=== PATIENT | male | born 1965 | race Two or more races ===

== ENCOUNTER 2018-08-06 10:08 | Emergency (ER) | payer SELFPAY ==
[~2018-08-06] VITALS: Ht 170.2 cm; Wt 72.6 kg
[2018-08-06 10:32] VITALS: BP 131/70
[2018-08-06 11:20] LABS: Basophils # (auto) 0 uL; Basophils % (auto) 0.4 % (0.0-2.0); Eosinophils # (auto) 0.1 uL; Eosinophils % (auto) 0.9 % (0.0-7.0); Hematocrit 48.9 % (41.0-53.0); Hemoglobin 16.4 g/dL (13.5-17.5); Lymphocytes # (auto) 1.1 uL; Lymphocytes % (auto) 19.8 % (10.0-50.0); Mean Corpuscular Hemoglobin 30.5 pg (28.0-32.0); Mean Corpuscular Hgb Conc. 33.6 g/dL (32.0-36.0); Mean Corpuscular Volume 90.9 fL (80.0-100.0); Monocytes # (auto) 0.5 uL; Neutrophils # (auto) 4.1 uL; Neutrophils % (auto) 70.9 % (37.0-80.0); Platelet Count (auto) 350 10^3/uL (140-450); Red Blood Cells 5.38 10^6/uL (4.5-5.90); Red Cell Distribution Width 13.1 % (11.8-14.3); White Blood Cell 5.8 10^3/uL (4.4-10.8)
[2018-08-06 11:37] LABS: Chloride 108 mmol/L (98-107); Potassium 4.3 mmol/L (3.5-5.1); Sodium 138 mmol/L (136-145)
[2018-08-06 11:45] LABS: Alanine Aminotransferase 29 U/L (16-61); Albumin 4.3 g/dL (3.4-5.0); Alkaline Phosphatase 66 U/L (45-117); Anion Gap 4 (5-15); Aspartate Aminotransferase 28 U/L (15-37); Bilirubin, Total 0.5 mg/dL (0.2-1.0); Blood Urea Nitrogen 11 mg/dL (7-18); Carbon Dioxide 26 mmol/L (21-32); GFR African American 111 mL/min; GFR Non-African American 92 mL/min; Glucose 99 mg/dL (74-106)
[2018-08-06] MEDS ORDERED: ASPirin 81 mg TAB PO ONE (12:15)
== END 2018-08-06 17:46 | disposition home or self-care (01) ==
LOC: ER 10:08
DX: R07.89 Other chest pain (principal); F41.9 Anxiety disorder, unspecified
CPT/HCPCS: 36415; 71046; 80053; 84484; 85025; 93005